=== PATIENT | female | born 1960 | race African-American/Black ===

== ENCOUNTER 2017-03-20 18:12 | Inpatient (IN) ==
[2017-03-20 18:53] LABS: Basophils % 0.4 % (0.0-0.8); Eosinophils # 0.1 10*3/uL (0.0-0.87); Eosinophils % 1.5 % (0.00-10.9); Hematocrit 33.4 VOL% (35.7-47.0); Hemoglobin 11.4 GM/DL (12.0-16.0); Immature Granulocytes % 0.4 %; Immature Granulocytes Absolute 0.03 #; Lymphocytes # 1.7 10*3/uL (1.4-4.0); Mean Corpuscular HGB Conc 34.1 GM/DL (32-36); Mean Corpuscular Hemoglobin 29 PG (27-34); Mean Platelet Volume 10.9 FL (9.6-12.0); Monocytes # 0.7 10*3/uL (0.11-0.8); Monocytes % 9.6 % (1.7-12.7); Neutrophils # 4.7 10*3/uL (1.4-7.4); Neutrophils % 65.1 % (38.7-73.9); Platelet Count 219 T/CUMM (130-400); Red Blood Count 3.93 MC/CUMM (3.8-5.5); Red Cell Distribution Width 13.2 % (9.3-17.3); White Blood Count 7.2 T/CUMM (4-12)
[2017-03-20] MEDS ORDERED: HEPARIN 5,000 UNIT/1 ML VIAL ONE (18:53)
[2017-03-20] MEDS ORDERED: HEPARIN DRIP 25,000 UNITS/500 ML PREMIX IV ONE (18:55)
[2017-03-20] MEDS ORDERED: HEPARIN 5,000 UNIT/1 ML VIAL IV ONE (18:58)
[2017-03-20] MEDS ORDERED: HEPARIN 1,000 UNIT/1 ML VIAL ONE ×2 (18:59→19:03)
[2017-03-20] MEDS ORDERED: HEPARIN DRIP 25,000 UNITS/500 ML PREMIX IV SCH (19:00)
--- NOTE | 2017-03-20 19:07 | Hospitalist History & Physical ---
Assessment and Plan - Time spent with patient Time spent with patient: Greater than 30 minutes (1) Pulmonary emboli Status: Acute Assessment and plan: Patient is found to have bilateral pulmonary emboli on CT of the chest. She is otherwise hemodynamically stable. She is oxygenating well on room air. She has begun on IV heparin in the emergency department which we will continue at this time and place her in the ICU for continued care overnight. I will go ahead and perform venous Dopplers of her lower extremities to identify any potential clot burden remaining. I will hold her estradiol patch at this time. Current Visit: Yes (2) Hypertension Status: Acute Assessment and plan: She is mildly hypertensive. At this time will continue her home antihypertensive regimen. Current Visit: Yes Qualifiers: Hypertension type: essential hypertension Qualified Code(s): I10 - Essential (primary) hypertension (3) Hypokalemia Status: Acute Assessment and plan: She has mild hypokalemia. We will replace potassium and follow-up in the a.m. Current Visit: Yes History of Present Illness Chief complaint: Left chest pain and shortness of breath History of present illness: Ms. Turpin is a 56 year old -Armenian female who had right hip surgery in [facility] on February 24. She has been ambulating with the use of her correction undergoing physical therapy. About 2 days ago she began having some sharp left- sided chest discomfort with mild shortness of breath which progressed yesterday and became worse today to the point that she was brought into the emergency room for further evaluation and care. Upon arrival she had CT of the chest performed and verbal report to me from the ED physician notes bilateral pulmonary emboli. She was started on IV heparin infusion in the emergency department. She denies any nausea, vomiting, diarrhea, constipation, melena, hematochezia, hematemesis, dysuria, hematuria, urinary frequency urgency or incontinence, lower extremity edema, seizures, syncope, upper respiratory tract infection, any history of prior DVT or PE, no history of bleeding diathesis. She is a non-smoker. She does require hormonal therapy status post total abdominal hysterectomy. She states that she has no primary care physician. She does see Dr. Oliveira for chronic pain management. Counseled her on CODE STATUS and she desires to be full code at this time. Home Medications Medication Instructions Recorded Confirmed Type Hydrocodone/Acetaminophen [Lortab 1 each PO Q8HR PRN 09/02/16 03/20/17 History 10-325 mg Tablet] Quetiapine Fumarate 300 mg PO BEDTIME 09/02/16 03/20/17 History Topiramate [Topamax] 100 mg PO BID 09/02/16 03/20/17 History cloNIDine TAB [Catapres Tab] 0.1 mg PO BID 09/02/16 03/20/17 History Estradiol [Estradiol 0.05 mg/24 hr 1 patch TRANSDERM SA 03/20/17 03/20/17 History (weekly) Patch] buPROPion HCl [Bupropion HCl Sr] 150 mg PO DAILY 03/20/17 03/20/17 History Allergies Allergy/AdvReac Type Severity Reaction Status Date / Time acetaminophen [From Esgic] Allergy HIVES Verified 03/20/17 18:19 butalbital [From Esgic] Allergy HIVES Verified 03/20/17 18:19 caffeine [From Esgic] Allergy HIVES Verified 03/20/17 18:19 Oxycodone [From OxyContin] Allergy HIVES Verified 03/20/17 18:19 sumatriptan [From Imitrex] Allergy HIVES Verified 03/20/17 18:19 Medical,Surgical,& Family Hx - Medical History Cardio: History of: Hypertension Psychological: History of: Schizophrenia Neurology: History of: Migraine - Surgical History HEENT Surgeries: Surgical HX of: Tonsilectomy & Adenoidectomy Reproductive Surgeries: Surgical HX of;: Section (X2), Hysterectomy Orthopedic Surgeries: Surgical HX of;: Orthopedic Surgery (Recent right hip surgery in [facility]) - Family History Family History: Reports;: Family Cancer, Family Diabetes, Family Hypertension - Social History Smoking Status: Never smoker Frequency of Alcohol Use: None Type of Drug Use: None 12 point system: reviewed and no additional remarkable complaints except as stated Exam - Constitutional Vitals: Period Temp Pulse Resp BP Sys/Cardozo Pulse Ox Last 24 Hr 98.2 F-98.2 F 100-100 20-20 143-143/103-103 98 General appearance: no acute distress - Head Head exam: Present: normocephalic, atraumatic - Eye Eye exam: Present: EOMI Pupils: Present: EVELIA - ENT ENT exam: Present: normal exam - Neck Neck exam: Present: normal inspection. Absent: lymphadenopathy, meningismus, tenderness, thyromegaly - Respiratory Respiratory exam: Present: clear to auscultation bilaterally. Absent: rales, rhonchi, wheezes - Cardiovascular Cardiovascular exam: Present: regular rate and rhythm, tachycardia. Absent: gallop, JVD, systolic murmur - GI/Abdominal GI/Abdominal exam: Present: normal bowel sounds, soft. Absent: mass, tenderness , rebound - Extremities Exam Extremities exam: Present: normal capillary refill. Absent: calf tenderness, edema - Back Exam Back exam: Present: normal inspection - Neurological Exam Neurological exam: Present: alert, oriented X3, CN II-XII intact. Absent: motor sensory deficit - Psychiatric Psychiatric exam: Present: normal affect, normal mood. Absent: agitated, anxious - Skin Skin exam: Present: warm, dry. Absent: erythema, petechiae, rash Results - Labs CBC & BMP: 03/20/17 18:33 03/20/17 18:33 Lab Results: I have reviewed the past 24 hour labs - EKG EKG shows: sinus rhythm - Diagnostic Findings Procedure: CT - chest: image reviewed by me
[2017-03-20 19:10] LABS: Blood Urea Nitrogen 6 MG/DL (7-18); Calcium 9.1 MG/DL (8.5-10.1); Glucose 101 MG/DL (74-106); Magnesium 2.3 MG/DL (1.8-2.4); Osmolality,Calculated 285.7 MOS/KG (273-304); Potassium 3.2 MMOL/L (3.5-5.1); Sodium 145 MMOL/L (136-145); Troponin I Only < 0.015 NG/ML (0.00-0.045)
[2017-03-20 19:12] LABS: Apearance,Urine CLEAR (Clear); Bilirubin,Urine Negative (Negative); Blood, Urine Small mg/dL (Negative); Glucose,Urine (UA) Negative (Negative); Ketones,Urine Negative (Negative); Nitrite,Urine Negative (Negative); Protein,Urine Negative; RBC,Urine <1 /HPF (0-4); Squamous Epithelial Cell,Urine Occasional /HPF (0-10); Urine Color Straw (Yellow); Urine Specific Gravity 1.018 (1.001-1.035); Urine Urobilinogen < 2.0 EU/DL (0.2-1.0); WBC,Urine 1 /HPF (0-6)
[2017-03-20 19:13] LABS: PT Patient Result 11.1 SECS; Partial Thromboplastin Time 30.3 SECS (0-40)
--- NOTE | 2017-03-20 19:17 | CT Report ---
CT chest PE study Indication: Shortness of breath status post hip repair. Chest pain. Comparison: None. Technique: CT of the chest was performed following the administration of intravenous contrast. In addition to multiple contiguous axial source images obtained from the thoracic inlet through the upper abdomen, coronal and sagittal MPR series were performed as were thin slab MIP reconstructions in the coronal and sagittal plane. The CT examination was performed using one or more of the following dose reduction techniques: Automatic exposure control, adjustment of the mA and kV according to patient size, or iterative reconstruction techniques. Findings: Pulmonary artery emboli are demonstrated bilaterally within the lower lobe pulmonary arteries. These appear to be nearly totally occlusive and extends into the segmental and a few subsegmental branches on the right with extension on the left to the level of the bifurcation of segmental branches. Additional thrombus is noted within the lingular branch. Also, thrombus is suggested within the right upper lobe lobar branch. Curvilinear stranding in the lingula may reflect atelectasis. Small left-sided pleural effusion is present. Trace right-sided pleural effusion is present. Compressive atelectasis of the lower lobes is demonstrated. Heart size is within normal limits. The esophagus appears normal. No adenopathy is noted within the axilla, mariah, or mediastinum. Visualized organs of the upper abdomen demonstrate no acute findings. Bony structures demonstrate no evidence of acute pathology. Impression: 1. Bilateral lower lobe and lingular branch pulmonary artery emboli are present. Thrombus is suggested within the right upper lobe lobar pulmonary artery. 2. Trace right-sided pleural effusion and small left-sided pleural effusion present. 3. Compressive atelectasis of the lower lobes as well as suggested atelectasis of the lingula is present. Findings were discussed with Dr. Dunbar at 1910 hours, date of exam. 03/20/2017 7:03 PM PROCEDURE INTERPRETED AT [facility] DEPARTMENT OF RADIOLOGY Final Report Signed by: Dr. Kerwin Serra
--- NOTE | 2017-03-20 19:29 | Emergency Department Note ---
Collin Castro Brittany, am scribing for, and in the presence of, Almas Dunbar MD 18 :38. Bettina Castro Hans, MD, personally performed the services described in this documentation, ascribed by Radha Polanco in my presence, and it is both accurate and complete [phone] . Arrival - Arrival Chief Complaint: Chest Pain Stated Complaint: Chest Pains, SOB ED Nursing Triage Note: C/O HAVING CHEST PAIN THAT STARTED LAST EVENING, + SOB. , STATES HAD HIP SURGERY ON February, DENIES HAVING NAUSEA., DENIES HAVING DIAPHORESIS, + CHILLS, EKG OBTAINED AT TIME OF TRIAGE, ALSO STATES THAT THE PAIN IS RADIATING TO THE LEFT ARM, Mode of Arrival: Ambulatory Limitations: No Limitations Source: Patient, RN Notes Reviewed - History of Present Illness HPI Narrative: Patient is a 56 y/o black female presenting to the ED with c/o left sided chest pain which onset last night. Patient describes this pain as a sharpness located in the left chest wall, radiating into the LUE. This pain is worsened upon taking deep breaths, but is not affected by exertion. Confirms tenderness at the left inframammary region. Has had some chills, but denies any fever, nausea , vomiting, or diaphoresis. Patient denies any abdominal pain or BLE swelling. Patient reports recent Right Hip Surgery per Dr. Damon [place]. She states that this procedure went well and is currently participating in rehabilitation at Dr. Oliveira office. She states that she does have a family hx significant for TN at an early age--father had TN in his 40's. Patient does have a hx of HTN, but denies prior TN or DVT. Patient has no other complaint/ pain. Onset (ago): day(s) (1) Consistency: constant Severity: moderate Severity scale (1-10): 6 Quality: sharp Allergies/Adverse Reactions: Allergies Allergy/AdvReac Type Severity Reaction Status Date / Time acetaminophen [From Esgic] Allergy HIVES Verified 03/20/17 18:19 butalbital [From Esgic] Allergy HIVES Verified 03/20/17 18:19 caffeine [From Esgic] Allergy HIVES Verified 03/20/17 18:19 Oxycodone [From OxyContin] Allergy HIVES Verified 03/20/17 18:19 sumatriptan [From Imitrex] Allergy HIVES Verified 03/20/17 18:19 Home Medications: Home Medications Medication Instructions Recorded Confirmed Type Hydrocodone/Acetaminophen [Lortab 1 each PO Q8HR PRN 09/02/16 03/20/17 History 10-325 mg Tablet] Quetiapine Fumarate 300 mg PO BEDTIME 09/02/16 03/20/17 History Topiramate [Topamax] 100 mg PO BID 09/02/16 03/20/17 History cloNIDine TAB [Catapres Tab] 0.1 mg PO BID 09/02/16 03/20/17 History Estradiol [Estradiol 0.05 mg/24 hr 1 patch TRANSDERM SA 03/20/17 03/20/17 History (weekly) Patch] buPROPion HCl [Bupropion HCl Sr] 150 mg PO DAILY 03/20/17 03/20/17 History Review of System - Review of System 12 point system: reviewed and no additional remarkable complaints except as stated - Review of System Constitutional: Present: chills. Absent: diaphoresis, fever Eyes: Absent: vision change Head/Ears/Nose/Throat: Absent: nasal drainage, sore throat Respiratory: Absent: respiratory distress Cardiovascular: Present: chest pain Gastrointestinal: Absent: abdominal pain, nausea, vomiting, diarrhea, constipation Genitourinary female: Absent: dysuria, frequency, urgency Musculoskeletal: Present: arm pain (left). Absent: back pain, joint swelling, leg pain, neck pain Skin: Absent: rash Neurological: Absent: headache Psychiatric: Absent: anxiety, depression Medical,Surgical,& Family Hx - Medical History Psychological: History of: Schizophrenia Neurology: History of: Migraine - Surgical History HEENT Surgeries: Surgical HX of: Tonsilectomy & Adenoidectomy Reproductive Surgeries: Surgical HX of;: Section (X2), Hysterectomy - Family History Family History: Reports;: Family Cancer, Family Diabetes, Family Hypertension - Social History Smoking Status: Never smoker Frequency of Alcohol Use: None Type of Drug Use: None Exam Vital Signs: Vital Signs Temperature 98.2 F 03/20/17 18:24 Pulse Rate 100 H 03/20/17 18:24 Respiratory Rate 20 03/20/17 18:24 Blood Pressure 143/103 03/20/17 18:24 O2 Sat by Pulse Oximetry 98 03/20/17 18:16 - General General appearance: alert, in no apparent distress - Head Head exam: Present: atraumatic, normocephalic, normal inspection - Eye Eye exam: Present: normal appearance, PERRL, EOMI - ENT ENT exam: Present: normal exam, normal oropharynx - Neck Neck exam: Present: normal inspection, full ROM, trachea midline - Chest Chest inspection: Present: symmetric chest wall rise, tenderness (reproducable chest wall tenderness at the left inframammary region) - Respiratory Respiratory exam: Present: normal lung sounds bilaterally - Cardiovascular Cardiovascular exam: Present: regular rate, normal rhythm, normal heart sounds - Abdominal Exam Abdominal exam: Present: soft, normal bowel sounds. Absent: tenderness - Extremities Exam Extremities exam: Present: normal inspection - Back Exam Back exam: Present: normal inspection - Neurological Exam Neurological exam: Present: alert, oriented X3, CN II-XII intact. Absent: motor sensory deficit - Psychiatric Psychiatric exam: Present: normal affect, normal mood - Skin Skin exam: Present: dry, erythema Course Course Narrative: This patient was evaluated in the ER with lab work as well as urinalysis and chest CT PE protocol. She was found to have bilateral pulmonary emboli on her chest CT. She did not have significant evidence of outflow obstruction in regards to her right ventricle and she was not hypotensive or unstable in any way. There does not appear to be any indications from the ER for activation of the interventional radiology or pharmacy laboratory technician for lysis or thrombectomy of the clot burden. She was placed on a heparin bolus and an infusion in the ER and I discussed her care with the hospitalist on-call who agreed to come and see her for admission. Results - Labs CBC & BMP: 03/20/17 18:33 03/20/17 18:33 Lab Results: I have reviewed the patients labs Labs: Laboratory Tests 03/20/17 18:40 POC Creatinine 1.15 H POC Estimated GFR (eGFR) > 60 Laboratory Tests 03/20/17 18:33 WBC 7.2 RBC 3.93 Hgb 11.4 L Hct 33.4 L MCV 85.0 L Plt Count 219 Laboratory Tests 03/20/17 18:33 Sodium 145 Potassium 3.2 L Chloride 115 H BUN 6 L Creatinine 1.00 Glucose 101 Total Creatine Kinase 50 CK-MB (CK-2) < 1.0 Troponin I < 0.015 Laboratory Tests 03/20/17 03/20/17 18:33 19:03 INR 1.0 PT Patient/Control Mix 11.1 Circ Anticoag PTT 30.3 Urine Color Straw Urine Appearance Clear Urine pH 7.0 Ur Specific University 1.018 Urine Protein Negative Urine Glucose (UA) Negative Urine Ketones Negative Urine Blood Small Urine Nitrate Negative Urine Bilirubin Negative Urine Urobilinogen < 2.0 H Urine Leukocytes Negative Urine RBC <1 Urine WBC 1 Ur Squamous Epith Cells Occasional - Diagnostic Findings Procedure: CT - chest: report reviewed by me (1. Bilateral lower lobe and lingular branch pulmonary artery emboli are present. Thrombus is suggested within the right upper lobe lobar pulmonary artery. 2. Trace right-sided pleural effusion and small left-sided pleural effusion present. 3. Compressive atelectasis of the lower lobes as well as suggested atelectasis of the lingula is present.) Disposition Clinical Impression: Pulmonary embolism Case discussed with: patient Disposition: Still a Patient Condition: Stable Time of Disposition: 19:29
[2017-03-20] MEDS ORDERED: ONDANSETRON 4 MG/2 ML VIAL IV PRN (20:17)
--- NOTE | 2017-03-20 20:49 | Ultrasound Report ---
US venous doppler LE BI Indication: Lower extremity swelling and pain. Pulmonary embolus. Recent right hip surgery. Comparison: None. Technique: Using a transcutaneous probe, grayscale, spectral Doppler, and color Doppler images of the bilateral lower extremity venous structures were captured and stored. Grayscale images prior to and following compression were obtained. Interrogated venous structures include the bilateral common femoral vein, superficial femoral vein (proximal, mid, and distal), and popliteal vein. Findings: There is no evidence of thrombus within the interrogated venous structures. the interrogated venous segments demonstrate presence of both color flow and spectral flow. Impression: 1. No evidence of venous thrombosis. 03/20/2017 8:46 PM PROCEDURE INTERPRETED AT [facility] DEPARTMENT OF RADIOLOGY Final Report Signed by: Dr. Kerwin Serra
[2017-03-20] MEDS: POTASSIUM CHLORIDE 20 MEQ TABLET PO SCH (21:11)
[2017-03-20] MEDS: TOPIRAMATE 100 MG TABLET PO SCH (21:11)
[2017-03-20] MEDS: cloNIDine 0.1 MG TABLET PO SCH (21:11)
[2017-03-20] MEDS: QUEtiapine 100 MG TABLET PO SCH (21:11)
[2017-03-20 22:18] LABS: Apearance,Urine CLEAR (Clear); Bacteria,Urine Occasional /HPF (Few); Bilirubin,Urine Negative (Negative); Blood, Urine Negative (Negative); Glucose,Urine (UA) Negative (Negative); Ketones,Urine Negative (Negative); Nitrite,Urine Negative (Negative); Protein,Urine Negative; RBC,Urine <1 /HPF (0-4); Squamous Epithelial Cell,Urine Occasional /HPF (0-10); Urine Color Straw (Yellow); Urine Specific Gravity 1.055 (1.001-1.035); Urine Urobilinogen < 2.0 EU/DL (0.2-1.0); WBC,Urine 1 /HPF (0-6)
[2017-03-21 00:43] LABS: Basophils % 0.5 % (0.0-0.8); Eosinophils # 0.1 10*3/uL (0.0-0.87); Eosinophils % 1.6 % (0.00-10.9); Hematocrit 31.2 VOL% (35.7-47.0); Hemoglobin 10.5 GM/DL (12.0-16.0); Immature Granulocytes % 0.3 %; Immature Granulocytes Absolute 0.02 #; Lymphocytes # 1.6 10*3/uL (1.4-4.0); Lymphocytes % 21.7 % (21.3-54.2); Mean Corpuscular HGB Conc 33.7 GM/DL (32-36); Mean Corpuscular Hemoglobin 29 PG (27-34); Mean Corpuscular Volume 85.2 FL (87-102); Mean Platelet Volume 10.5 FL (9.6-12.0); Monocytes # 0.7 10*3/uL (0.11-0.8); Monocytes % 9.1 % (1.7-12.7); Neutrophils # 4.9 10*3/uL (1.4-7.4); Neutrophils % 66.8 % (38.7-73.9); Platelet Count 190 T/CUMM (130-400); Red Blood Count 3.66 MC/CUMM (3.8-5.5); Red Cell Distribution Width 13.1 % (9.3-17.3); White Blood Count 7.4 T/CUMM (4-12)
[2017-03-21 01:08] LABS: Calcium 8.8 MG/DL (8.5-10.1); Osmolality,Calculated 290.4 MOS/KG (273-304); Potassium 3.3 MMOL/L (3.5-5.1)
[2017-03-21] MEDS: POTASSIUM CHLORIDE 20 MEQ TABLET PO SCH ×4 (01:16→11:17)
--- NOTE | 2017-03-21 05:32 | EKG Report ---
Stationary ECG Study [facility] ER Test Date: 03/20/2017 6:18:16 PM Pat Name: MARU YATES Department: Room: 120 Gender: F Shingler: Mora : 1960 Requested by: Almas Dunbar Order Number: [id number] Reading MD: DOTTIE ARCE Intervals [place] Rate: 81 P: 37 MI: 169 QRS: 36 QRSD: 94 T: 46 QT: 386 QTc: 423 Interpretive Statements SINUS RHYTHM LEFT ATRIAL ABNORMALITY NONSPECIFIC T WAVE ABNORMALITY Electronically Signed On 03-21-17 16:07:45 CDT by DOTTIE ARCE [email or web address]
--- NOTE | 2017-03-21 07:46 | Hospitalist Progress Note ---
Assessment and Plan - Time spent with patient Time spent with patient: Less than 30 minutes (1) Pulmonary emboli Status: Acute Assessment and plan: 03/20/17:Patient is found to have bilateral pulmonary emboli on CT of the chest. She is otherwise hemodynamically stable. She is oxygenating well on room air. She has begun on IV heparin in the emergency department which we will continue at this time and place her in the ICU for continued care overnight. I will go ahead and perform venous Dopplers of her lower extremities to identify any potential clot burden remaining. I will hold her estradiol patch at this time. 03/21/17: Patient remains hemodynamically stable and oxygenating well on room air. She received IV heparin overnight. Will go ahead and transition her to Xarelto by mouth and discontinue heparin and she does not require overlap therapy with this. Will transfer her to telemetry today and she can be reevaluated possibly for early discharge in the next 24-48 hours. Current Visit: Yes (2) Hypertension Status: Acute Assessment and plan: 03/20/17: She is mildly hypertensive. At this time will continue her home antihypertensive regimen. 03/21/17: Blood pressures well controlled. Continue current care. Current Visit: Yes Qualifiers: Hypertension type: essential hypertension Qualified Code(s): I10 - Essential (primary) hypertension (3) Hypokalemia Status: Acute Assessment and plan: She has mild hypokalemia. We will replace potassium and follow-up in the a.m. Current Visit: Yes Hospitalist: Subjective Interval history: Ms. Turpin is doing well today. She continues to have some left lower chest discomfort which is reproducible. She has minimal shortness of breath. She has had no evidence of bleeding. Exam - Constitutional Vitals: Period Temp Pulse Resp BP Sys/Cardozo Pulse Ox Last 24 Hr 98.2 F-98.5 F 63-100 16-32 100-150/58-103 97-100 General appearance: no acute distress - Head Head exam: Present: normocephalic, atraumatic - Eye Eye exam: Present: EOMI Pupils: Present: EVELIA - ENT ENT exam: Present: normal oropharynx - Neck Neck exam: Present: normal inspection - Respiratory Respiratory exam: Present: clear to auscultation bilaterally. Absent: rales, rhonchi, wheezes - Cardiovascular Cardiovascular exam: Present: regular rate and rhythm. Absent: systolic murmur , tachycardia - GI/Abdominal GI/Abdominal exam: Present: normal bowel sounds, soft. Absent: mass, tenderness , rebound - Extremities Exam Extremities exam: Absent: calf tenderness, edema - Back Exam Back exam: Present: normal inspection - Neurological Exam Neurological exam: Present: alert, oriented X3, CN II-XII intact, motor sensory deficit - Psychiatric Psychiatric exam: Present: normal affect, normal mood. Absent: agitated, anxious - Skin Skin exam: Present: warm, dry. Absent: erythema, rash Results - Labs CBC & BMP: 03/21/17 00:39 03/21/17 00:39 Lab Results: I have reviewed the past 24 hour labs Quality Measures - VTE Contraindication to Pharmacological VTE Prophylaxis: Already on Theraputic Agent , No Prophylaxis Needed
[2017-03-21] MEDS: TOPIRAMATE 100 MG TABLET PO SCH ×2 (08:14→22:22)
[2017-03-21] MEDS: RIVAROXABAN 15 MG TABLET PO SCH ×2 (08:14→16:02)
[2017-03-21] MEDS: buPROPion SR 150 MG TABLET PO SCH (08:14)
[2017-03-21] MEDS: cloNIDine 0.1 MG TABLET PO SCH ×2 (08:14→22:21)
[2017-03-21] MEDS: PANTOPRAZOLE 40 MG TABLET PO SCH (08:14)
[2017-03-21] MEDS ORDERED: PROMETHAZINE 25 MG/1 ML VIAL IM PRN (20:21)
[2017-03-21] MEDS: QUEtiapine 100 MG TABLET PO SCH (22:22)
[2017-03-21] MEDS: KETOROLAC 30 MG/1 ML VIAL IV PRN (22:46)
[2017-03-22] MEDS: TOPIRAMATE 100 MG TABLET PO SCH ×2 (08:11→21:56)
[2017-03-22] MEDS: PANTOPRAZOLE 40 MG TABLET PO SCH (08:11)
[2017-03-22] MEDS: cloNIDine 0.1 MG TABLET PO SCH ×2 (08:11→21:57)
[2017-03-22] MEDS: RIVAROXABAN 15 MG TABLET PO SCH ×2 (08:11→16:56)
[2017-03-22] MEDS: buPROPion SR 150 MG TABLET PO SCH (08:11)
[2017-03-22] MEDS: KETOROLAC 30 MG/1 ML VIAL IV PRN (08:12)
--- NOTE | 2017-03-22 12:04 | Hospitalist Progress Note ---
Assessment and Plan (1) Pulmonary emboli Status: Acute Assessment and plan: Continue Xarelto 15 mg p.o. twice daily, patient needs to be more ambulatory. Continue O2 for support Current Visit: Yes (2) Hypertension Status: Acute Assessment and plan: Controlled, continue clonidine Current Visit: Yes Qualifiers: Hypertension type: essential hypertension Qualified Code(s): I10 - Essential (primary) hypertension (3) Hypokalemia Status: Acute Assessment and plan: Resolved Current Visit: Yes (4) Anemia Status: Acute Assessment and plan: Continue to monitor, continue Protonix Current Visit: Yes Hospitalist: Subjective Interval history: still very sob but needs to get up and move around, 90% on 2 liters Exam - Constitutional Vitals: Period Temp Pulse Resp BP Sys/Cardozo Pulse Ox Last 24 Hr 97.4 F-99.0 F 75-89 16-20 117-137/72-86 90-92 Exam: Heart Rate-[RRR] Lungs-[diminished but clear ] GI-[+bs soft, NT] Ext-[trace edema] Neuro [Motor 5/5], [alert and oriented times 3] psych [normal mood and affect] General [no acute distress] Results - Labs CBC & BMP: 03/21/17 00:39 03/22/17 03:30 Lab Results: I have reviewed the past 24 hour labs - Diagnostic Findings Procedure: CT - chest: report reviewed by me (Bilateral lower lobe and lingular pulmonary artery emboli thrombus also suggested in the right upper lobe.), Ultrasound: report reviewed by me (Venous Dopplers negative) Quality Measures - VTE Contraindication to Pharmacological VTE Prophylaxis: Already on Theraputic Agent , No Prophylaxis Needed
--- NOTE | 2017-03-22 14:15 | XRay Report ---
XR KUB Indication: Nausea and vomiting Comparison: None Technique: Frontal views of the abdomen Findings: Nonspecific bowel gas pattern. Suspect 5 mm left renal calculus which could be within the region of the left renal pelvis. Presumed pelvic phleboliths. It would be difficult to exclude distal ureteral calculus in the appropriate clinical setting. Ornamental ring projects over the umbilicus. Visualized osseous and surrounding soft tissue structures demonstrate no acute abnormality. IMPRESSION: As above. PROCEDURE INTERPRETED AT [facility] DEPARTMENT OF RADIOLOGY Final Report Signed by: Dr Ej Lunsford
[2017-03-22] MEDS: QUEtiapine 100 MG TABLET PO SCH (21:57)
[2017-03-23 05:10] LABS: Basophils % 0.5 % (0.0-0.8); Eosinophils # 0.3 10*3/uL (0.0-0.87); Eosinophils % 4.5 % (0.00-10.9); Hematocrit 30.7 VOL% (35.7-47.0); Hemoglobin 10.3 GM/DL (12.0-16.0); Immature Granulocytes % 0.5 %; Immature Granulocytes Absolute 0.04 #; Lymphocytes # 1.7 10*3/uL (1.4-4.0); Lymphocytes % 23.4 % (21.3-54.2); Mean Corpuscular HGB Conc 33.6 GM/DL (32-36); Mean Corpuscular Hemoglobin 28 PG (27-34); Mean Corpuscular Volume 84.3 FL (87-102); Mean Platelet Volume 11.4 FL (9.6-12.0); Monocytes # 0.7 10*3/uL (0.11-0.8); Monocytes % 9.3 % (1.7-12.7); Neutrophils # 4.5 10*3/uL (1.4-7.4); Neutrophils % 61.8 % (38.7-73.9); Platelet Count 189 T/CUMM (130-400); Red Blood Count 3.64 MC/CUMM (3.8-5.5); White Blood Count 7.3 T/CUMM (4-12)
[2017-03-23] MEDS: PANTOPRAZOLE 40 MG TABLET PO SCH (09:18)
[2017-03-23] MEDS: RIVAROXABAN 15 MG TABLET PO SCH ×2 (09:18→16:35)
[2017-03-23] MEDS: cloNIDine 0.1 MG TABLET PO SCH ×2 (09:19→20:37)
[2017-03-23] MEDS: TOPIRAMATE 100 MG TABLET PO SCH ×2 (09:19→20:39)
[2017-03-23] MEDS: buPROPion SR 150 MG TABLET PO SCH (09:19)
[2017-03-23] MEDS ORDERED: SODIUM CHLORIDE 0.9% 1,000 ML IV ONE (11:24)
[2017-03-23] MEDS: METOPROLOL TARTRATE 25 MG TABLET PO SCH ×2 (12:01→20:35)
--- NOTE | 2017-03-23 14:36 | Hospitalist Progress Note ---
Assessment and Plan (1) Pulmonary emboli Status: Acute Assessment and plan: Continue Xarelto 15 mg p.o. twice daily, 98% on RA Current Visit: Yes (2) Hypertension Status: Acute Assessment and plan: Controlled, continue clonidine Current Visit: Yes Qualifiers: Hypertension type: essential hypertension Qualified Code(s): I10 - Essential (primary) hypertension (3) Hypokalemia Status: Acute Assessment and plan: Resolved Current Visit: Yes (4) Anemia Status: Acute Assessment and plan: Continue to monitor, continue Protonix Current Visit: Yes (5) Tachycardia Status: Acute Assessment and plan: metoprolol 50 mg po bid Current Visit: Yes Hospitalist: Subjective Interval history: Patient was very tachycardic and short of breath today. Worried that she is getting more orthostatic. I will give her a liter of normal saline. Her orthostatics were negative however appear Exam - Constitutional Vitals: Period Temp Pulse Resp BP Sys/Cardozo Pulse Ox Last 24 Hr 96.7 F-99.2 F 71-93 16-18 96-134/54-84 91-97 Exam: Heart Rate-tachycardia] Lungs-[clear GI-[+bs soft, NT] Ext-[no edema] Neuro [Motor 5/5], [alert and oriented times 3] psych [normal mood and affect] General [no acute distress] Results - Labs CBC & BMP: 03/23/17 04:40 03/22/17 03:30 Lab Results: I have reviewed the past 24 hour labs Quality Measures - VTE Contraindication to Pharmacological VTE Prophylaxis: Already on Theraputic Agent , No Prophylaxis Needed
[2017-03-23] MEDS: QUEtiapine 100 MG TABLET PO SCH (20:37)
[2017-03-24] MEDS: cloNIDine 0.1 MG TABLET PO SCH (08:55)
[2017-03-24] MEDS: TOPIRAMATE 100 MG TABLET PO SCH (08:56)
[2017-03-24] MEDS: PANTOPRAZOLE 40 MG TABLET PO SCH (08:56)
[2017-03-24] MEDS: buPROPion SR 150 MG TABLET PO SCH (08:56)
[2017-03-24] MEDS: RIVAROXABAN 15 MG TABLET PO SCH (08:56)
[2017-03-24] MEDS: METOPROLOL TARTRATE 25 MG TABLET PO SCH (08:56)
--- NOTE | 2017-03-24 10:38 | Discharge Summary ---
Hospital Course - Hospital Course Hospital Course: 56-year-old -[place] female with a recent history of hip her hip surgery done in [place] on February 24. Patient was ambulating at home but was also on an estrogen patch. The combination of the hip surgery and estrogen patch is most likely the cause of her clots. Patient was severely short of breath and noted to have bilateral pulmonary emboli. She was hemodynamically stable and was started on initially on heparin which was converted over to Xarelto. She has hypertension and her blood pressure is well controlled on the clonidine. We added metoprolol twice a day for tachycardia. She sees Dr. Oliveira for chronic pain management. I told her she is not to resume her hormones. There is no history of clots in her family however 2 of her sisters has lost multiple babies in various terms of their . I would recommend hypercoagulable testing for her 2 weeks after she is finished with her course of Xarelto. I would recommend that she complete a six-month course. I am recommending that she follow-up with Dr. Snyder from pulmonary. Dr. Ospina his her primary care doctor as her blood pressure may decrease after stopping her hormones. - Time spent with patient Time with patient DS: Greater than 30 minutes (35 min) Diagnosis - Discharge Diagnosis (1) Pulmonary emboli Status: Acute (2) Hypertension Status: Acute (3) Hypokalemia Status: Acute (4) Anemia Status: Acute (5) Tachycardia Status: Acute Discharge Plan - Discharge Data Disposition: Disch To Home/Self Care Condition at Discharge: Stable Discharge Diet: regular diet Activity: resume usual activities as tolerated Hygiene: no restrictions Weight Bearing at Discharge: full weight bearing - Discharge Medications New Rivaroxaban [Xarelto] 15 mg PO BID W/MEALS #34 tablet Metoprolol Tartrate Tab [Lopressor Tab] 25 mg PO BID #60 tablet Rivaroxaban [Xarelto] 20 mg PO DAILY W/BREAKFAST #30 tablet Continue Hydrocodone/Acetaminophen [Lortab 10-325 mg Tablet] 1 each PO Q8HR PRN PRN Reason: Pain Quetiapine Fumarate 300 mg PO BEDTIME cloNIDine TAB [Catapres Tab] 0.1 mg PO BID Topiramate [Topamax] 100 mg PO BID buPROPion HCl [Bupropion HCl Sr] 150 mg PO DAILY Discontinued Estradiol [Estradiol 0.05 mg/24 hr (weekly) Patch] 1 patch TRANSDERM SA - Follow Up or Referral Follow Up: Aaron Snyder MD [Physician] - 2 Weeks Diego Diaz [Physician] - 2 Weeks - Forms/Instructions Additional Discharge Instructions: NO more hormones ever. Needs hypercoaguable workup when done with xarelto Exam - Constitutional Vitals: Period Temp Pulse Resp BP Sys/Cardozo Pulse Ox Last 24 Hr 97.9 F-99.0 F 68-92 18-20 110-133/70-84 95-98 General appearance: normal weight, no acute distress - Respiratory Respiratory exam: Present: clear to auscultation bilaterally. Absent: rhonchi, wheezes - Cardiovascular Cardiovascular exam: Present: regular rate and rhythm. Absent: systolic murmur - GI/Abdominal GI/Abdominal exam: Present: normal bowel sounds, soft. Absent: tenderness DS: Provider Date of admission: 03/20/17 19:20 Primary care physician: . No PCP Attending physician on admission: Ute Thomas Consults: 03/22/17 12:01 Consult to Physical Therapy [CONS] Routine Reason for Physical Therapy: Evaluate and Treat Consult Comment: want her up and walking aware of clots Discharging clinician: Divine Luis MD
[2017-03-24 12:09] VITALS: BP 109/70
== END 2017-03-24 12:45 | disposition home or self-care (01) | DRG 176 ==
LOC: N.ED 18:12 → N.EDINP 19:20 → SUATTDRO 19:20 → N.CC 19:37 → N.TELES 03-21 08:58
PROVIDERS: ADMIT Hospitalist; ATTEND Internal Medicine